=== PATIENT | female | born 1985 | race Two or more races ===

== ENCOUNTER 2024-09-12 13:46 | Emergency (ER) | payer OTHER ==
[~2024-09-12] VITALS: Ht 157.5 cm; Wt 61.2 kg
[2024-09-12] MEDS ORDERED: BUPROPION XL300 MG PO (14:21)
[2024-09-12] MEDS ORDERED: ESCITALOPRAM OX20 MG PO (14:21)
[2024-09-12 14:54] LABS: HEMATOCRIT 40.9 % (36.0-45.00); HEMOGLOBIN 13.9 g/dL (12.0-15.00); MEAN CELL VOLUME 85.6 fL (80.00-100.00); MEAN CORPUSCULAR HEMOGLOBIN 29.1 pg (27.00-32.0); PLATELET COUNT 201 K/uL (150-450); RED BLOOD COUNT 4.77 M/uL (4.00-6.00); RED CELL DISTRIBUTION WIDTH 13.6 % (11.5-14.5)
[2024-09-12 15:25] LABS: PH,URINE 5.5 (5.0-8.0); URINE APPEARANCE Clear; URINE BILIRRUBIN Negative (NEGATIVE); URINE BLOOD Negative; URINE COLOR Yellow; URINE GLUCOSE Negative (NEGATIVE); URINE KETONE Negative (NEGATIVE); URINE LEUKOCYTE Negative; URINE NITRATE Negative; URINE PROTEIN Negative (NEGATIVE); URINE UROBILINOGEN 0.2 E.U./dl
[2024-09-12 15:27] LABS: CALCIUM 9.1 mg/dL (8.5-10.1); CREATININE SERUM 0.69 mg/dL (0.55-1.02); GFR 95.22; POTASSIUM 3.84 mEq/L (3.5-5.1)
[2024-09-12 15:29] LABS: URINE BACTERIA 216.5 uL (0.0-1933); URINE RBC 4.5 uL (0.0-20.8)
== END 2024-09-12 21:44 | disposition home or self-care (01) ==
LOC: ER 13:47
PROVIDERS: Emergency Medicine
DX: K64.5 Perianal venous thrombosis (principal)
CPT/HCPCS: 36415; 74177; Q9965